=== PATIENT | male | born 1935 | race Caucasian/White ===

== ENCOUNTER → 2016-10-17 09:12 | Day surgery (SDC) | payer MEDICARE ==
[~2016-10-17 09:12] MED LIST: Acetaminophen TAB* 325 MG PO PRN; Buffered Lidocaine 1% SYRIN* 3 ML/SYR SYRINGE INTRADERM ONE; Cyclopentolate 1% OPTH.SOL* 2 ML BTL ONE; Flurbiprofen 0.03% OPTH.SOL* 2.5 ML BTL ONE; Lidocaine 1% MPF* 2 ML VIAL ONE; Lidocaine 2% EPI 1:200000 MPF* 20 ML VIAL ONE; Midazolam* 1 MG/ML 2 ML VIAL (2 MG) ONE; Neomycin/Polymy/Dex OPTH.SUSP* MAXITROL 0.1% 5 ML ONE; Phenylephrine 2.5% OPTH.SOL* 2 ML BTL ONE; Povidone Iodine 5% OPTH* 30 ML BTL ONE; Proparacaine 0.5% OPHTH.SOL* 15 ML BTL ONE; acetaZOLAMIDE TAB* 250 MG ONE; fentaNYL* 50 MCG/ML 2 ML VIAL (100 MCG VIAL) ONE
[2016-10-17 12:04] VITALS: BP 127/72
--- NOTE | 2016-10-17 12:39 | OP ---
DATE OF OPERATION: 10/17/2016 - [facility] DATE OF : 1935. SURGEON: Alfredito Valencia M.D. PREOPERATIVE DIAGNOSIS: Cataract right eye. POSTOPERATIVE DIAGNOSIS: Cataract right eye. OPERATIVE PROCEDURE: Phacoemulsification right eye with IOL. DESCRIPTION OF PROCEDURE: The patient was brought to the operating room after being given 1/2% Alcaine with epinephrine drops in the preoperative area. The eye was prepped and draped in the usual sterile fashion. Sterile drape and eyelid speculum were placed. Again, topical 1/2% Alcaine with epinephrine was given. A paracentesis incision was made at the 9 o'clock position with the No.75 blade. Clear cornea incision 2.2 x 2.2-mm was created at the 12 o'clock position starting at the anterior limbus using the 2.2-mm keratome. The anterior chamber was irrigated with 0.4 mL of 1% non-preservative intracameral lidocaine and filled with DisCoVisc. A capsulorrhexis was completed using the cystotome and the Utrata forceps. Hydrodissection was performed with balanced salt solution. The lens nucleus was removed with the Phacoemulsification handpiece without incident. Cortex was removed with the irrigation-aspiration handpiece. The capsular bag was re-inflated using DisCoVisc and an [id number] implant was inserted with the shooter. The irrigation-aspiration handpiece was used to remove all residual DisCoVisc. The eye was refilled with balanced salt solution and the wound checked and found to be watertight. Topical Maxitrol drops were given. [id number]/[facility] #: [id number] [facility]ENTERLisa
== END | disposition home or self-care (01) ==
LOC: OREAST 09:12
PROVIDERS: ATTEND Specialist
DX: H25.811 Combined forms of age-related cataract, right eye (principal); H04.123 Dry eye syndrome of bilateral lacrimal glands; I48.2 Chronic atrial fibrillation; Z79.01 Long term (current) use of anticoagulants; Z87.891 Personal history of nicotine dependence; Z86.73 Personal history of transient ischemic attack (TIA), and cerebral infarction without residual deficits
CPT/HCPCS: J2250; J3010; V2632

== ENCOUNTER 2017-10-01 09:49 | Inpatient (IN) | payer MEDICARE ==
[2017-10-01] MEDS ORDERED: Amiodarone IV VIAL* 3 ML ONE (09:54)
[2017-10-01] MEDS ORDERED: Amiodarone 360 MG IVPREMIX* 360 MG/200 ML BAG IV ONE ×2 (09:55→10:03)
[2017-10-01] MEDS ORDERED: NS 0.9% 1000 ML* 1,000 ML IV ONE (10:03)
[2017-10-01] MEDS: Amiodarone 150 MG IVPREMIX* 150 MG/100 ML BAG IV ONE ×2 (10:05→10:15)
[2017-10-01] MEDS: Amiodarone 360 MG IVPREMIX* 360 MG/200 ML BAG IV ONE ×2 (10:25→16:01)
[2017-10-01] MEDS ORDERED: Heparin DRIP 25,000 UNITS(*) 25,000 UNITS/500 ML BAG IVPB ONE (10:26)
[2017-10-01] MEDS ORDERED: Heparin VIAL(*) 5000 UNITS/ML VIAL (FIVE THOUSAND) ONE (10:28)
[2017-10-01 10:39] LABS: ABS Basophils 0 10^3/ul (0-0.2); ABS Eosinophils 0.3 10^3/ul (0-0.6); ABS Lymphocytes 1.6 10^3/ul (1.0-4.8); ABS Monocytes 0.6 10^3/ul (0-0.8); ABS Neutrophils 4.3 10^3/ul (1.5-7.7); ABS Nucleated RBC 0 10^3/ul; Eosinophil % 4.5 % (0-6); Hematocrit 46 % (42-52); Hemoglobin 15.2 g/dl (14.0-18.0); Lymphocyte % 24.1 % (25-47); Mean Corpuscular HGB Conc 33 g/dl (31-36); Mean Corpuscular Hemoglobin 31 pg (27-31); Mean Corpuscular Volume 92 fL (80-94); Mean Platelet Volume 8.4 um3 (7.4-10.4); Nucleated Red Blood Cells % 0.1; Platelet Count 222 10^3/ul (150-450); Red Blood Count 4.95 10^6/ul (4.0-5.4); Red Cell Distribution Width 14 % (10.5-15); White Blood Count 6.8 10^3/ul (3.5-10.8)
[2017-10-01 10:47] LABS: INR 1.14 (0.77-1.02)
[2017-10-01] MEDS ORDERED: Famotidine TAB* 20 MG PO SCH (11:00)
[2017-10-01] MEDS ORDERED: Heparin VIAL(*) 5000 UNITS/ML VIAL (FIVE THOUSAND) IV SCH (11:00)
--- NOTE | 2017-10-01 11:00 | RAD ---
HISTORY: STEMI COMPARISONS: November 17, 2011 VIEWS: 1: frontal portable view of the chest at 10:00 AM FINDINGS: LINES AND TUBES: None. CARDIOMEDIASTINAL SILHOUETTE: The cardiac silhouette is mildly enlarged. The cardiomediastinal silhouette is otherwise normal for portable technique. PLEURA: The costophrenic angles are sharp. No pleural abnormalities are noted. LUNG PARENCHYMA: There is hyperinflation. There is prominence of the central pulmonary vasculature. ABDOMEN: The upper abdomen is clear. There is no subphrenic gas. BONES AND SOFT TISSUES: Degenerative changes are noted along the spine. IMPRESSION: 1. MILD CARDIOMEGALY. 2. HYPERINFLATION. 3. PULMONARY VASCULAR CONGESTION.
[2017-10-01] MEDS ORDERED: Heparin VIAL(*) 5000 UNITS/ML VIAL (FIVE THOUSAND) IV ONE (11:12)
[2017-10-01] MEDS ORDERED: Heparin DRIP 25,000 UNITS(*) 25,000 UNITS/500 ML BAG IV SCH (11:15)
[2017-10-01 12:07] LABS: EGFR Non-African American 80.2 (>60)
[2017-10-01] MEDS ORDERED: Morphine INJ* 2 MG/ML 1 ML CARPUJECT IV PRN (12:18)
[2017-10-01] MEDS ORDERED: Morphine INJ* 2 MG/ML 1 ML CARPUJECT ONE ×2 (12:22→14:37)
[2017-10-01] MEDS ORDERED: Morphine INJ* 4 MG/ML 1 ML SYRINGE (NEW SYRINGE VERSION) IV PRN (14:31)
[2017-10-01] MEDS: Morphine INJ* 2 MG/ML 1 ML CARPUJECT IV PRN ×2 (14:40→18:33)
--- NOTE | 2017-10-01 15:16 | CONS ---
CC: Dr. Wellington Abreu; Dr. Pancho Leggett * CARDIOLOGY CONSULT: DATE OF CONSULT: 10/01/17 INDICATION FOR CARDIAC CATHETERIZATION: The patient with guo-ee-eoyqhajm arrest with ventricular fibrillation, with EKG showing mild ST-segment elevations in limited leads of V5 and V6, without significant dramatic other changes. HISTORY OF PRESENT ILLNESS: The patient is a pleasant 81-year-old gentleman whose prior cardiac history includes atrial flutter in the past for which he underwent ablation therapy and has been on Pradaxa therapy since then. He has a history of an arrhythmic-induced left ventricular systolic dysfunction with a cardiac catheterization in 2008 demonstrating an EF reduced in the range of 30% to 35%, with global hypokinesis at that time. He had a 50% narrowing in the left anterior descending artery and a 20% narrowing noted in the proximal right coronary artery. 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 As mentioned earlier, he had ablation therapy for atrial flutter performed in 2008. He has been on Pradaxa 150 mg. Of note, later in the course of the evaluation he admitted that he only takes the Pradaxa once a day and not twice a day. He has been on a baby aspirin once a day as well. He has not noted any sensations of palpitations. On the day of admission, he states that he was in his house and developed an onset of severe lightheaded, near syncopal sensation. He thought he was going to pass out, but he then recovered, but then started experiencing some chest discomfort. He called the paramedics, when they arrived he walked out to greet them and he proceeded to collapse. He was found to be in ventricular fibrillation. They shocked him back to normal sinus rhythm and after approximately 2 minutes of CPR, he responded well and basically awoke quickly. An EKG was performed by the paramedics that suggested the presence of ST- segment elevation in V5 alone. There was no significant ST-segment elevations elsewhere on at least one of the EKGs I saw. When he came into the emergency room, over the time on repeated EKGs, the ST- segment elevation in V5 had normalized. There was minimal ST-segment depression in II, III, and aVF, of an inconsistent nature. In the emergency room, when I saw him, he was complaining about a chest soreness, but it was worse when he took a breath or if I pressed on his chest. At rest, if he did not breathe at all, by the time I got down evaluating him, he had no chest discomfort. PAST MEDICAL HISTORY: Includes a history of CVA in 2011 involving the left superior temporal lobe on MRI. He has a history of reported atrial arrhythmias. Of note, the patient had ablation therapy reportedly for atrial flutter in 2008. He does have a history of atrial fibrillation with an EKG from a stress test in 2013 that showed atrial fibrillation with a controlled rate. He reportedly had a history in the distant past of peptic ulcer disease and gastroesophageal reflux, and kidney stones on one occasion. PAST SURGICAL HISTORY: He has a surgical history of bilateral inguinal hernia surgeries and some fractured bones. MEDICATIONS: According to the patient, the medications that he takes at home includes aspirin one a day, Pradaxa 150 mg once a day. He takes vitamin E and some other medications. He is on no other cardiac medications, specifically he is not on any metoprolol. In the past, at one point, he had been on flecainide , but he has not been on that for quite a while. ALLERGIES: He denies any significant allergies. FAMILY HISTORY: Remarkable for mother, who of heart disease. Father, who had throat cancer. SOCIAL HISTORY: He used to smoke in the very distant past, but has not smoked for over 30 years. REVIEW OF SYSTEMS: The patient denies any recent episodes of any chest or arm discomfort, or profound shortness of breath. He denies any significant episodes of dizziness recently. He has the GI history as mentioned earlier. He has no known history of significant persistent kidney disease. He has had the CVA. PHYSICAL EXAMINATION: When I saw him in the emergency room, reveals a gentleman currently in no acute distress. Blood pressure revealed 150/97, with a pulse of 78, O2 saturation 97% on room air. Neck was supple. There is no increased JVP. Carotid had fair upstroke and volume. I cannot appreciate a definitive bruit or transmitted murmur. Conjunctivae are pink. Sclerae are clear. Lungs reveal no accessory muscle usage. There is fair excursion. There is no active rales, rhonchi, or wheezes. Heart reveals no visible heaves , no palpable heaves or thrills. Normal S1, S2. No significant systolic or diastolic murmur. Abdomen is soft, nontender, without organomegaly. Extremities without edema. Femoral pulses present, without bruit. Neuro: The patient seems alert and oriented. Musculoskeletal: The patient moves all extremities appropriately. Psychological: The patient with normal affect. DIAGNOSTIC STUDIES/LAB DATA: Electrocardiogram most recently was from 10/01/17 , time 0957, showed sinus rhythm, heart rate 77. There was minimal nonspecific ST-T wave changes with minimal depression in II, III, and aVF. There was minimal J- point elevation in V5, with concave upward ST-segment. OVERALL ASSESSMENT: Lavon presents now with an oqo-gz-zzuppohu cardiac arrest. At this point in time we will be getting a 2D echo and look at his overall LV function. He does have some Pradaxa on board, but taking it once a day may not be anywhere near therapeutic amount in him. Consideration for cardiac catheterization within the next 24 hours, or more emergently if needed, will be made. We will review the results of the echocardiogram. We will cycle his cardiac enzymes as well and await laboratory results. [id number]/[facility] #: [id number] [facility]ITALLisa
--- NOTE | 2017-10-01 15:33 | HP ---
ADMISSION HISTORY AND PHYSICAL: DATE OF ADMISSION: 10/01/17 REASON FOR ADMISSION: Rgo-tn-Zqhyloye Cardiac Arrest (Ventricular Fibrillation) . HISTORY OF PRESENT ILLNESS: The patient is an 81-year-old male with a prior history of atrial fibrillation, status post catheter ablation in 2008 with a recurrence and requiring cardioversion in 2013 and has been on Pradaxa (and no antiarrhythmic agent) -this morning had an episode of sudden loss of consciousness. EMS was called and when they arrived, the patient was noted to be in ventricular fibrillation, was successfully cardioverted with return of consciousness - On arrival to the emergency room, electrocardiogram initially showed ST elevation in the inferior and lateral precordial leads, but a repeat cardiogram approximately 30 minutes later showed resolution in the inferior leads. The patient was alert, oriented and in no distress in the ED, and was hemodynamically stable. He was started on an amiodarone infusion and heparin infusion, and admitted to the intensive care unit. There was no chest pain or shortness of breath on admission. Patient was seen in ED by Dr. Hernán Culp ( interventional cardiology). OUTPATIENT MEDICATIONS: 1. Dabigatran 150 mg p.o. daily. 2. Cholecalciferol 5000 units daily. 3. Ascorbic acid 500 mg daily. 4. Aspirin 81 mg daily. 5. Magnesium oxide 400 mg daily. ALLERGIES: There are no known drug allergies. REVIEW OF SYSTEMS: Noncontributory. PHYSICAL EXAMINATION GENERAL: The patient is alert, oriented and breathing comfortably. VITAL SIGNS: Temp 97.1 (temporal), blood pressure 140/88, heart rate 65 and regular, respiratory rate 18 and nonlabored, O2 sat 97% on nasal O2 at 2 L per minute. HEENT: Normal. NECK: Supple. LUNGS: Clear to auscultation. CARDIAC: Exam revealed no murmurs or rubs. ABDOMEN: Soft, nontender. Bowel sounds are present. EXTREMITIES: Warm, not cyanotic and not edematous. DIAGNOSTIC STUDIES/LAB DATA: Admission laboratory data is significant for initial troponin of 0.05, lactic acid of 2.8, BNP of 155. Hemoglobin, white count and platelet count are all normal. Initial INR is 1.14 and PTT on heparin infusion is 71.6. Chest x-ray shows a prominent cardiac silhouette with possible vascular congestion. There are no infiltrates. Electrocardiograms as indicated IMPRESSION: Hyn-ym-jgmnuvqo cardiac arrest (ventricular fibrillation) without any neurologic or hemodynamic sequelae. No evidence of ongoing ischemia or progressive myocardial injury. MANAGEMENT PLAN: The patient will receive an amiodarone and heparin drip pending Dr. Culp's decision to perform cardiac catheterization. Currently, the patient is hemodynamically stable and breathing comfortably. TIME SPENT: Critical care time, 60 minutes. [id number]/[facility] #: [id number] SHAJI
[2017-10-01] MEDS ORDERED: Clopidogrel TAB* 300 MG PO ONE (15:52)
[2017-10-01] MEDS ORDERED: Amiodarone 360 MG IVPREMIX* 360 MG/200 ML BAG IV SCH (16:00)
[2017-10-01] MEDS ORDERED: Ondansetron INJ* 2 MG/ML VIAL IV PRN (16:14)
[2017-10-01] MEDS ORDERED: Magnesium Sulfate 1 GM IV* 1 GM/100 ML BAG IV ONE (22:00)
[2017-10-01] MEDS: NS 0.9% 1000 ML* 1,000 ML IV SCH (23:00)
[2017-10-02] MEDS: Morphine INJ* 2 MG/ML 1 ML CARPUJECT IV PRN (01:12)
[2017-10-02 05:37] LABS: ABS Basophils 0 10^3/ul (0-0.2); ABS Eosinophils 0 10^3/ul (0-0.6); ABS Lymphocytes 1.2 10^3/ul (1.0-4.8); ABS Nucleated RBC 0 10^3/ul; Eosinophil % 0.4 % (0-6); Hematocrit 42 % (42-52); Mean Corpuscular HGB Conc 34 g/dl (31-36); Mean Corpuscular Hemoglobin 31 pg (27-31); Mean Corpuscular Volume 92 fL (80-94); Mean Platelet Volume 8.4 um3 (7.4-10.4); Nucleated Red Blood Cells % 0; Platelet Count 207 10^3/ul (150-450); Red Blood Count 4.54 10^6/ul (4.0-5.4); Red Cell Distribution Width 14 % (10.5-15); White Blood Count 9.2 10^3/ul (3.5-10.8)
[2017-10-02 05:47] LABS: EGFR Non-African American 85.6 (>60)
[2017-10-02] MEDS ORDERED: Aspirin EC TAB* 81 MG TAB.EC PO SCH (06:00)
[2017-10-02] MEDS ORDERED: Clopidogrel TAB* 75 MG PO ONE (06:00)
[2017-10-02 07:02] VITALS: BP 151/96
[2017-10-02] MEDS: NS 0.9% 1000 ML* 1,000 ML IV SCH (07:26)
[2017-10-02] MEDS ORDERED: Midazolam* 1 MG/ML 10 ML VIAL (10 MG) ONE (07:53)
[2017-10-02] MEDS ORDERED: fentaNYL* 50 MCG/ML 5 ML VIAL (250 MCG VIAL) ONE (07:53)
[2017-10-02] MEDS ORDERED: Heparin 2 UNITS/ML IVPREMIX* 3,000 ML IV ONE (07:54)
[2017-10-02] MEDS ORDERED: nitroGLYCERIN DRIP* 25,000 MCG/250 ML BTL ONE (07:54)
[2017-10-02] MEDS ORDERED: Lidocaine 1% INJ* 10 MG/ML 30 ML SDV ONE (07:54)
[2017-10-02] MEDS ORDERED: Iohexol 350 (CONTRAST) 200 ML MDV IV ONE (07:54)
[2017-10-02] MEDS ORDERED: fentaNYL* 50 MCG/ML 2 ML VIAL (100 MCG VIAL) ONE (08:45)
--- NOTE | 2017-10-02 11:55 | TRS ---
CC: Dr. Wellington Abreu; Dr. Pancho Leggett* DATE OF ADMISSION: 10/01/2017. DATE OF TRANSFER: 10/02/2017. FINAL DIAGNOSIS: Out of hospital ventricular fibrillation arrest. SECONDARY DIAGNOSES: 1. Zdr-XN-eyoqceluf myocardial infarction. 2. Severe cardiomyopathy. 3. Coronary artery disease. 4. History of atrial fibrillation. 5. History of prior CVA (2011). 6. Peptic ulcer disease. 7. Gastroesophageal reflux. 8. History of kidney stone. HOSPITAL COURSE: The patient is an 81-year-old gentleman who presented to [facility] on 10/01/2017 after suffering an out of hospital ventricular fibrillation arrest with two minutes of CPR and electrical defibrillation by the paramedics with the moravian of consciousness and a normal sinus rhythm. Please refer to the my consult note for complete details. The patient was noted to have mild ST segment elevation of V5 and mild in V6, which by the time he got to the hospital steadily improved without other changes elsewhere. At that hospital, he was completely pain free and he was admitted to the Intensive Care Unit as there was an initial history he was taking Pradaxa for atrial fibrillation. He was placed on an Amiodarone drip and also Heparin drip. He had gotten aspirin therapy. A second antiplatelet agent was not added at that time. Overnight his cardiac enzymes steadily increased slowly from an initial cardiac enzyme of total CPK of 90 and MB of 4.3 and troponin of 0.05 to a total CPK of 315, an MB of 61, and a troponin of 6.31. His kidney function was stable with a BUN and creatinine on the day of transfer of 23 and 0.8 with a potassium of 4.3. Overnight he was stable. He had absolutely no anginal type of chest discomfort. He had soreness particularly in the right parasternal rib cage from two minutes of CPR. During the hospitalization, he had an echocardiogram performed on 10/01/2017 which revealed an EF of 20 to 25 percent with global severe left ventricular systolic dysfunction. There was mild to moderate mitral regurgitation with an eccentric jet that was mild to moderate tricuspid regurgitation with moderate pulmonary hypertension and trace pulmonic regurgitation. Of note, that was compared with an echocardiogram from 11/23/2013 when he had normal left ventricular systolic function and only mild mitral regurgitation and only trace tricuspid regurgitation. He was brought to the cardiovascular laboratory suite on the morning of 2017. Cardiac catheterization revealed progression and disease in the left anterior descending artery (see below past cardiac history for comparison) with a haziness and a calcified proximal to ostial LAD lesion that on most views did not appear to be significant except for the ARABIC cranial view. The mid LAD, which in the past had a prior 50 percent blockage with calcium was noted to again have similar to that. The right coronary artery had no significant blockages with ostial calcium and a mild ostial narrowing, and the circumflex had a mild mid 30 to 40 percent narrowing noted. His LV function continued to show severe left ventricular systolic dysfunction. The only areas that were pumping reasonably well were the very proximal anterior wall and the proximal and maybe proximal to slightly mid inferior wall. Overall ejection fraction in general was reduced in the 20 to 25 percent range. PAST CARDIAC HISTORY: The patient's cardiac history seemed to date back to 2005 when he had a cardiac catheterization which revealed the 50 percent mid LAD and the 20 percent right coronary artery blockage. In 2008, he had atrial flutter and significant left ventricular systolic dysfunction, and a cardiac catheterization to look at that LV dysfunction revealed that his EF was markedly reduced at 20 to 25 percent, but there was no progression of his coronary artery disease. He apparently underwent atrial flutter ablation back in 2008. He then presented in 2011 with a stroke which they questioned atrial fibrillation and as such they put him on anticoagulation therapy. He had also been on Flecainide in the past to try to control his rhythm disturbances. In 2013, he presented with recurrent atrial fibrillation and the echocardiogram showed his LV function was normal and he had a stress test done as well performed as an exercise stress test to 9 mins standard Howie protocol, heart rate to 123% age predicted. There was no chest pain or significant EKG changes reported and nuclear images were felt to be normal with an ejection fraction of 54 percent. He underwent electrical cardioversion and apparently was placed on beta dianne therapy alone. No further cardiac follow-up had been pursued. MEDICATIONS: His current medications at [facility] at the time of transfer included: 1. Aspirin 81 mg a day. 2. Famotidine 20 mg a day. 3. Heparin drip continuously for anticoagulation. 4. Amiodarone drip at 0.5 mg/hour. PHYSICAL EXAMINATION ON THE DATE OF TRANSFER: General: The patient was stable with no acute chest discomfort. Vital Signs: Blood pressure was 144/98, pulse 59, respirations 16, O2 saturation 96 percent. HEENT: Conjunctival pink. Sclerae clear. Neck: Supple, no increased JVP. Lungs: Revealed no accessory muscle usage. There was no active rales, rhonchi, or wheezes. Heart: Revealed a regular rate and rhythm without significant murmur. Abdomen: Soft, nontender. Extremities: Without edema. Electrocardiogram on the date of transfer on 10/02/2017 revealed sinus rhythm, heart rate 61, [place] to .19, QRS .12, QT .51, axis was -28 degrees, there was T- wave inversions in 1 aVL and V3 through 6 with flat T-wave and aVF and T-wave inversion lead 2. The patient is now to be transferred to [facility] to Dr. Nugent ( Belt Machine Operator) at the Audit [facility], specifically to further analyze the LAD lesion with consideration for fractional flow reserve or interventional ultrasound to determine whether or not the artery's lesion is significant or not. If it is, consideration for stenting will be made and if that is carried out, medical management for LV dysfunction and a life vest will need to be placed before the patient is discharged. If, however, the LAD lesion is not found to be significant, then most likely Electrophysiology will be consulted and an ICD box will need to be placed. One concern I have regarding Electrophysiology's involvement, is whether or not the patient deteriorated potentially from ventricular fibrillation or whether he had rapid atrial fibrillation and ischemic induced ventricular fibrillation from moderate coronary artery disease. With his history of prior atrial fibrillation, consideration may have to be made toward getting him on Amiodarone or another agent orally before he is discharged to make sure he does not have a recurrent episode of rapid atrial fibrillation, which may have been the precipitating factor in all of this. [id number]/[facility] #: [id number] [facility]ENTERLisa
--- NOTE | 2017-10-02 12:12 | CATH ---
CC: Wellington Abreu MD; Pancho Leggett MD* CARDIAC CATHETERIZATION REPORT: DATE OF PROCEDURE: 10/01/17 INDICATION FOR THE CARDIAC CATHETERIZATION: The patient with out of hospital ventricular fibrillation arrest with abnormal cardiac enzymes, history of moderate coronary artery disease, now with severe left ventricular systolic dysfunction. PROCEDURE: Coronary arteriography, left heart catheterization, left ventriculography. The patient was interviewed and examined on the floor of the hospital where the risks and benefits were explained. He understood them and wished to proceed. EQUIPMENT UTILIZED: Right femoral artery sheath, 5-Kittitian Maria Del Rosario sheath. DIAGNOSTIC CATHETERS: FL 4.5 curve left coronary catheter, FR4 curve right 5- Kittitian catheter. Left heart catheterization catheter, 5-Kittitian angled pigtail catheter. MEDICATIONS GIVEN: The patient had already received aspirin therapy, was on a heparin drip and amiodarone drip. The patient received fentanyl therapy and IV nitroglycerin was started and increased to 5 mcg per minute by the end of the case. The total contrast used was 103 cc of Omnipaque dye. The radiation exposure included 10 minutes of fluoro time. The air kerma radiation was 1063 milligray. The DAPA radiation was 6237 microgray per meter squared. RESULTS: HEMODYNAMIC DATA: Left heart catheterization - central aortic pressure recorded at 156/87 with a mean of 115, left ventricular pressure 157 over left ventricular end diastolic pressure of 28 to 30 mmHg. LEFT VENTRICULOGRAPHY: Performed in the CLARK projection revealed severe global left ventricular systolic dysfunction with virtual akinesis of the mid to distal anterior apical region and distal inferior wall. The only area of muscle that appeared to be moving with normal degree is the very proximal anterior wall and the proximal inferior wall. Overall ejection fraction is estimated at 25% at best. There was very mild mitral regurgitation at best. CORONARY ARTERIOGRAPHY: A. Left coronary artery: 1. Left main - the left main was widely patent. 2. Left anterior descending artery - the left anterior descending artery had a proximal area of haziness with calcium seen, which appeared to be in some views as much as 50% to 55%. The GERMAN cranial projection suggests perhaps worse. The mid portion of the left anterior descending artery had calcium with an area of haze noted as well. In its worst view, it appeared to have a narrowing of 55%. The continuation of left anterior descending artery revealed the artery tapering with an area of narrowing in its distal portion of about 65 % to 70% in a very small caliber (noninterventional) area before it bifurcated onto the distal inferior wall. 3. Circumflex artery - a nondominant vessel supplying a high trifurcation marginal branch which bifurcated in its mid portion with a larger superior and smaller caliber inferior branch. There was haze seen in the proximal to mid segment area with a degree of luminal reduction noted to be approximately 40% to 45%. The continuation of the circumflex supplied 2 very thin obtuse marginal branches ending at a low lying bifurcating obtuse marginal branch. Just at the proximal portion of that area was a narrowing that was seen to be approximately 35% to 40%. B. Right coronary artery - a dominant vessel supplying multiple acute marginal branches, the PDA and the posterior left ventricular branch. There was very mild ostial narrowing with calcium of approximately 15% to 20%. The mid portion of the vessel had a very mild 15% blockage. OVERALL ASSESSMENT: Severe global left ventricular systolic dysfunction with elevated left ventricular end diastolic pressure, seemingly out of proportion for the degree of coronary artery disease. The presence of progressive disease in the left anterior descending artery proximal area with calcium with moderate disease in the mid segment, which may be mildly worse. At this point in time, given the severe ischemia and the presence of severe left ventricular systolic dysfunction and the need to pursue further evaluation of the left anterior descending artery and the potential need for a ICD to be placed (which cannot be done currently this week at [facility]), the decision was made to transfer the patient to [facility]. A discussion was made with Dr. Nugent , interventionalist, who will probably perform FFR analysis of the left anterior descending artery and make further decisions on which route to proceed with, either intervention or EP evaluation. Either way, the patient will need aggressive medication for left ventricular systolic function. Consideration may have to be made by Electrophysiology any way with regard to antiarrhythmic therapy as we cannot rule out that the patient did not have rapid atrial fibrillation with ischemia-induced ventricular fibrillation since he had a history of atrial fibrillation in the past and was not on reportedly beta-dianne therapy at home. [id number]/[facility] #: [id number] [facility]
== END 2017-10-02 10:00 | disposition short-term general hospital (02) | DRG 281 ==
LOC: ED 09:49 → ICU 10:10
PROVIDERS: ADMIT Internal Medicine Critical Care Medicine; ATTEND Internal Medicine Cardiovascular Disease
PROC: 4A023N7 Measurement of Cardiac Sampling and Pressure, Left Heart, Percutaneous Approach (ICD-10-PCS; principal; 2017-10-01)
PROC: B211YZZ Fluoroscopy of Multiple Coronary Arteries using Other Contrast (ICD-10-PCS; 2017-10-01)
PROC: B215YZZ Fluoroscopy of Left Heart using Other Contrast (ICD-10-PCS; 2017-10-01)
DX: I46.2 Cardiac arrest due to underlying cardiac condition (principal); I21.4 Non-ST elevation (NSTEMI) myocardial infarction; I42.9 Cardiomyopathy, unspecified; I49.01 Ventricular fibrillation; I25.10 Atherosclerotic heart disease of native coronary artery without angina pectoris; I48.91 Unspecified atrial fibrillation; K25.9 Gastric ulcer, unspecified as acute or chronic, without hemorrhage or perforation; K21.9 Gastro-esophageal reflux disease without esophagitis; Z79.01 Long term (current) use of anticoagulants; Z79.82 Long term (current) use of aspirin; Z79.899 Other long term (current) drug therapy; Z87.891 Personal history of nicotine dependence; Z82.49 Family history of ischemic heart disease and other diseases of the circulatory system; Z80.0 Family history of malignant neoplasm of digestive organs
CPT/HCPCS: 36415; 71045; 76937; 80053; 82550; 82553; 83605; 83721; 83735; 83874; 83880; 84132; 84484; 85025; 85610; 85730; 86850; 86900; 86901; 87641; 93005; 93306; 93458; 99285; A9270-GY; C1887; J0282; J1644; J2250; J2270; J3010; J3475

== ENCOUNTER 2018-02-05 08:08 | Day surgery (SDC) | payer MEDICARE ==
[~2018-02-05 08:08] MED LIST changes: -Acetaminophen TAB* 325 MG PO PRN; +Buffered Lidocaine 0.9% SYRIN* 5 ML/SYR SYRINGE INTRADERM ONE; -Buffered Lidocaine 1% SYRIN* 3 ML/SYR SYRINGE INTRADERM ONE; -Cyclopentolate 1% OPTH.SOL* 2 ML BTL ONE; -Flurbiprofen 0.03% OPTH.SOL* 2.5 ML BTL ONE; -Lidocaine 1% MPF* 2 ML VIAL ONE; -Lidocaine 2% EPI 1:200000 MPF* 20 ML VIAL ONE; -Midazolam* 1 MG/ML 2 ML VIAL (2 MG) ONE; -Neomycin/Polymy/Dex OPTH.SUSP* MAXITROL 0.1% 5 ML ONE; -Phenylephrine 2.5% OPTH.SOL* 2 ML BTL ONE; -Povidone Iodine 5% OPTH* 30 ML BTL ONE; -Proparacaine 0.5% OPHTH.SOL* 15 ML BTL ONE; -acetaZOLAMIDE TAB* 250 MG ONE; -fentaNYL* 50 MCG/ML 2 ML VIAL (100 MCG VIAL) ONE
[2018-02-05] MEDS ORDERED: Midazolam* 1 MG/ML 2 ML VIAL (2 MG) ONE (08:52)
[2018-02-05 09:20] LABS: EGFR Non-African American 70.9 (>60)
[2018-02-05] MEDS ORDERED: Propofol* 10 MG/ML 20 ML BTL IV PUSH ONE (09:33)
[2018-02-05] MEDS ORDERED: Naloxone* 0.4 MG/ML 1 ML VIAL IV PRN (09:52)
[2018-02-05 11:53] VITALS: BP 120/73
--- NOTE | 2018-02-05 12:55 | CARD ---
CC: Dr. Wellington Abreu; Gage Gómez MD, [facility]. ELECTRICAL CARDIOVERSION REPORT: DATE OF PROCEDURE: 02/05/18 INDICATION: The patient with chronic atrial fibrillation, now on amiodarone therapy for attempt at c ardioversion on drug therapy. PROCEDURE: Electrical cardioversion to normal sinus rhythm. DESCRIPTION OF PROCEDURE: The patient was interviewed and examined in the office, where the risks an d benefits were explained. They were again reviewed with him at the day of the procedure. He was br ought into the the operating suite, where he was placed under anesthesia by the anesthesia department . Once fully anesthetized, he underwent initial synchronized cardioversion at 200 joules. Unfortuna tely, he did not cardiovert at that time. A second 200 joule electrical cardioversion shocked into a n atrial regularly paced rhythm. Subsequent, EKG in the recovery room demonstrated the atrial paced ventricularly sensed rhythm at a rate of 60. The patient was stable up and about and eventually disch arged home and will follow up for a repeat EKG next week. He will maintain his Eliquis anticoagulati on as well as his amiodarone and other medications. [id number]/[facility] #: [id number]
== END 2018-02-05 11:58 | disposition home or self-care (01) ==
LOC: OR 08:08
PROVIDERS: ATTEND Internal Medicine Cardiovascular Disease
DX: I48.1 Persistent atrial fibrillation (principal); R06.02 Shortness of breath; Z86.73 Personal history of transient ischemic attack (TIA), and cerebral infarction without residual deficits; I42.9 Cardiomyopathy, unspecified; I34.0 Nonrheumatic mitral (valve) insufficiency; Z95.0 Presence of cardiac pacemaker; I25.10 Atherosclerotic heart disease of native coronary artery without angina pectoris; Z87.891 Personal history of nicotine dependence
CPT/HCPCS: 36415; 80048; 93005; J2250; J2704

== ENCOUNTER 2021-09-05 12:05 | Observation (INO) ==
[~2021-09-05 12:05] MED LIST changes: -Buffered Lidocaine 0.9% SYRIN* 5 ML/SYR SYRINGE INTRADERM ONE; +Buffered Lidocaine 1% SYRIN 1 ml INTRADERM ONE; +Lactated Ringers 1000 ml BAG 1,000 ML IV SCH
[2021-09-05] MEDS ORDERED: Lidocaine 2% PF 5 ML VIAL ONE (12:13)
[2021-09-05] MEDS ORDERED: Propofol 10 MG/ML 20 ML BTL ONE (12:13)
[2021-09-05] MEDS ORDERED: ceFAZolin 2 GM PREMIX 2 GM/50 ML BAG ONE (12:14)
[2021-09-05] MEDS ORDERED: Rocuronium 50 mg VIAL 10 mg/ml 5 ml VIAL (50 mg) ONE (12:16)
[2021-09-05] MEDS ORDERED: Ketamine HCL 50 mg/ml 10 ml VIAL (500 MG) ONE (12:17)
[2021-09-05] MEDS ORDERED: Propofol 0 MG/0 ML BTL ONE (12:25)
[2021-09-05 12:39] LABS: INR 1.23 (0.86-1.15)
[2021-09-05] MEDS ORDERED: Midazolam 2 mg/2 ml VIAL 1 mg/ml 2 ml VIAL (2 mg) ONE (13:24)
[2021-09-05] MEDS ORDERED: fentaNYL 250 mcg/5 ml 50 MCG/ML 5 ml VIAL (250 MCG) ONE (13:30)
[2021-09-05] MEDS ORDERED: ROPIVACAINE 5 MG/ML 30 ML BTL (0.5%) ONE ×2 (13:31→14:26)
[2021-09-05] MEDS ORDERED: Lidocaine 1% MPF 5 ML VIAL ONE (13:31)
[2021-09-05] MEDS ORDERED: DiMENhydriNATE IV 50 mg/ml 1 ml VIAL IV PUSH PRN (13:34)
[2021-09-05] MEDS ORDERED: Ondansetron 4 mg VIAL 2 MG/ML 2 ml VIAL IV PRN ×2 (13:34→16:25)
[2021-09-05] MEDS ORDERED: Acetaminophen IV 1 GM/100ML 100 ML IV PRN (13:34)
[2021-09-05] MEDS ORDERED: HYDROmorphone 1 MG/1 ML SYRINGE IV PRN (13:34)
[2021-09-05] MEDS ORDERED: diPHENhydraMINE IV 50 MG/ML 1 ml VIAL (BENADRYL) IV PRN ×2 (13:34→16:25)
[2021-09-05] MEDS ORDERED: Naloxone 0.4 mg VIAL 0.4 mg/ml 1 ml VIAL IV PRN (13:34)
[2021-09-05] MEDS ORDERED: fentaNYL 100 mcg/2 ml 50 MCG/ML VIAL IV PRN (13:34)
[2021-09-05] MEDS ORDERED: EPHEDrine (Pressors) 50 MG/ML VIAL ONE (15:04)
[2021-09-05] MEDS ORDERED: Sterile Water for Inj 10 ML ONE (15:05)
[2021-09-05] MEDS ORDERED: Phenylephrine 40 mcg/mL 10mL (400mcg) SYRINGE ONE (15:09)
[2021-09-05] MEDS ORDERED: Ondansetron 4 mg VIAL 2 MG/ML 2 ml VIAL ONE (15:26)
[2021-09-05] MEDS ORDERED: Dexamethasone IV 4 MG/ML VIAL 1 ml VIAL ONE (15:26)
[2021-09-05] MEDS ORDERED: HYDROmorphone 0.5 MG/0.5 ML SYRINGE ONE (15:35)
[2021-09-05] MEDS ORDERED: Ondansetron ODT 4 mg TAB 4 MG TAB PO PRN (16:25)
[2021-09-05] MEDS ORDERED: diPHENhydraMINE 25 mg TAB PO PRN (16:25)
[2021-09-05] MEDS ORDERED: Lactulose 30 ml UDC PO PRN (16:25)
[2021-09-05] MEDS ORDERED: Magnesium Hydroxide LIQ 30 ML UDC PO PRN (16:25)
[2021-09-05] MEDS ORDERED: Lactated Ringers 1000 ml BAG 1,000 ML IV SCH (17:00)
[2021-09-05] MEDS ORDERED: ceFAZolin 1 GM ADVAN 1 GM in NS 0.9% 50 ML 50 ML IVPB SCH (17:00)
[2021-09-05] MEDS: Magnesium Hydroxide LIQ 30 ML UDC PO SCH (21:20)
[2021-09-05] MEDS: ceFAZolin 1 GM in Dextrose 1 GM/50 ML BAG IVPB SCH (23:51)
[2021-09-06] MEDS: ceFAZolin 1 GM in Dextrose 1 GM/50 ML BAG IVPB SCH ×2 (05:56→15:35)
[2021-09-06 06:09] LABS: Hematocrit 34 % (42-52); Hemoglobin 11.5 g/dL (14.0-18.0); Mean Platelet Volume 7.8 fL (7.4-10.4); Platelet Count 214 10^3/uL (150-450)
[2021-09-06 06:56] LABS: Calcium 8.8 mg/dL (8.6-10.3); Potassium 4.6 mmol/L (3.5-5.0); eGFR CKD-EPI 50.4 (>60)
[2021-09-06] MEDS: Aspirin EC 81 mg TAB.EC (enteric coated) PO SCH (09:43)
[2021-09-06] MEDS: Cholecalciferol (VIT D3) 1,000 unit TAB PO SCH (09:43)
[2021-09-06] MEDS: Vitamin THERAPEUTIC TAB PO SCH (09:45)
[2021-09-06] MEDS: Magnesium Hydroxide LIQ 30 ML UDC PO SCH ×2 (09:46→20:30)
[2021-09-06] MEDS ORDERED: Lactated Ringers 500 ml BAG 500 ML IV ONE (10:19)
[2021-09-06] MEDS ORDERED: Lactated Ringers 500 ml BAG 500 ML IV SCH (13:18)
[2021-09-07 05:48] LABS: Hematocrit 31 % (42-52); Hemoglobin 10.8 g/dL (14.0-18.0); Mean Platelet Volume 8.2 fL (7.4-10.4); Platelet Count 189 10^3/uL (150-450)
[2021-09-07 06:04] LABS: Potassium 4.8 mmol/L (3.5-5.0)
[2021-09-07] MEDS: Cholecalciferol (VIT D3) 1,000 unit TAB PO SCH (08:42)
[2021-09-07] MEDS: Aspirin EC 81 mg TAB.EC (enteric coated) PO SCH (08:43)
[2021-09-07] MEDS: Magnesium Hydroxide LIQ 30 ML UDC PO SCH (08:43)
[2021-09-07] MEDS: Vitamin THERAPEUTIC TAB PO SCH (08:45)
[2021-09-07 11:26] VITALS: BP 126/83
== END 2021-09-07 14:00 | disposition home or self-care (01) ==
LOC: SSU 12:05 → OR 12:05
PROVIDERS: ADMIT Orthopaedic Surgery Adult Reconstructive Orthopaedic Surgery; ATTEND Orthopaedic Surgery Adult Reconstructive Orthopaedic Surgery

== ENCOUNTER 2021-10-27 18:38 | Inpatient (IN) ==
[2021-10-27 19:29] LABS: INR 1.29 (0.86-1.15)
[2021-10-27 19:45] LABS: High Sens Troponin Baseline 28 pg/mL (<20)
[2021-10-27 19:56] LABS: ALT 19 U/L (7-52); Albumin 3.8 g/dL (3.2-5.2); Alkaline Phosphatase 81 U/L (35-149); Blood Urea Nitrogen 28 mg/dL (6-24); CO2 Carbon Dioxide 23 mmol/L (22-32); Calcium 9.6 mg/dL (8.6-10.3); Chloride 105 mmol/L (101-111); Glucose 98 mg/dL (70-100); Sodium 137 mmol/L (135-145); eGFR CKD-EPI 70.4 (>60)
[2021-10-27 20:09] LABS: ABS Eosinophils 0.3 10^3/ul (0-0.6); ABS Lymphocytes 0.9 10^3/ul (1.0-4.8); ABS Monocytes 0.7 10^3/ul (0-0.8); ABS Neutrophils 4.7 10^3/ul (1.5-7.7); Eosinophil % 3.8 %; Hematocrit 32 % (42-52); Hemoglobin 10.7 g/dL (14.0-18.0); Lymphocyte % 14.1 %; Mean Corpuscular HGB Conc 34 g/dL (31-36); Mean Corpuscular Hemoglobin 30 pg (27-31); Mean Corpuscular Volume 89 fL (80-94); Mean Platelet Volume 7.3 fL (7.4-10.4); Platelet Count 303 10^3/uL (150-450); Red Blood Count 3.53 10^6 /uL (4.18-5.48); Red Cell Distribution Width 14 % (10-15); White Blood Count 6.6 10^3/uL (3.5-10.8)
[2021-10-27 20:32] LABS: Albumin/Globulin Ratio 1.2 (1-3); Globulin 3.1 g/dL (2-4); Total Protein 6.9 g/dL (6.4-8.9)
[2021-10-27 20:33] LABS: High Sensitivity Troponin 1 Hr 35 pg/mL (<20)
[2021-10-27 20:33] LABS: Anion Gap 9 mmol/L (2-11)
[2021-10-27] MEDS: Amiodarone 360 MG IVPREMIX 360 MG/200 ML BAG IV SCH (21:36)
[2021-10-27] MEDS ORDERED: Ondansetron 4 mg VIAL 2 MG/ML 2 ml VIAL IV PRN (22:26)
[2021-10-28 00:10] LABS: Magnesium 1.6 mg/dL (1.9-2.7); Potassium 4.2 mmol/L (3.5-5.0)
[2021-10-28] MEDS ORDERED: Magnesium Sulf 4 GM/100 ML IV 4,000 MG/100 ML BAG IVPB ONE (00:28)
[2021-10-28] MEDS ORDERED: Amiodarone 360 MG IVPREMIX 360 MG/200 ML BAG IV SCH (04:10)
[2021-10-28] MEDS: Amiodarone 360 MG IVPREMIX 360 MG/200 ML BAG IV SCH ×2 (04:14→10:07)
[2021-10-28 05:33] LABS: ABS Eosinophils 0.3 10^3/ul (0-0.6); ABS Lymphocytes 1.4 10^3/ul (1.0-4.8); ABS Monocytes 0.7 10^3/ul (0-0.8); ABS Neutrophils 3.3 10^3/ul (1.5-7.7); Eosinophil % 4.8 %; Hematocrit 32 % (42-52); Hemoglobin 10.5 g/dL (14.0-18.0); Lymphocyte % 23.9 %; Mean Corpuscular HGB Conc 33 g/dL (31-36); Mean Corpuscular Hemoglobin 29 pg (27-31); Mean Corpuscular Volume 89 fL (80-94); Mean Platelet Volume 7.4 fL (7.4-10.4); Platelet Count 297 10^3/uL (150-450); Red Blood Count 3.56 10^6 /uL (4.18-5.48); Red Cell Distribution Width 14 % (10-15); White Blood Count 5.7 10^3/uL (3.5-10.8)
[2021-10-28 06:20] LABS: Magnesium 2.7 mg/dL (1.9-2.7); Potassium 4.2 mmol/L (3.5-5.0); eGFR CKD-EPI 85.2 (>60)
[2021-10-28] MEDS: Cholecalciferol (VIT D3) 1,000 unit TAB PO SCH (08:16)
[2021-10-28] MEDS: Multivitamins/Minerals TAB PO SCH (08:16)
[2021-10-28] MEDS: Aspirin EC 81 mg TAB.EC (enteric coated) PO SCH (08:16)
[2021-10-28] MEDS: COENZYME Q10 400 MG PO SCH (08:17)
[2021-10-28] MEDS: NON FORMULARY MED (Cyanocobalamin (Vitamin B-12) [Vitamin B-12] 5,000 mcg Tablet, Sublingu SL SCH (08:17)
[2021-10-28] MEDS: OMEGA-3 FATTY ACID 1000 mg(NF) PO SCH (08:18)
[2021-10-29] MEDS: Cholecalciferol (VIT D3) 1,000 unit TAB PO SCH (10:07)
[2021-10-29] MEDS: Aspirin EC 81 mg TAB.EC (enteric coated) PO SCH (10:07)
[2021-10-29] MEDS: Multivitamins/Minerals TAB PO SCH (10:08)
[2021-10-29] MEDS: COENZYME Q10 400 MG PO SCH (10:15)
[2021-10-29] MEDS: OMEGA-3 FATTY ACID 1000 mg(NF) PO SCH (10:15)
[2021-10-29] MEDS: NON FORMULARY MED (Cyanocobalamin (Vitamin B-12) [Vitamin B-12] 5,000 mcg Tablet, Sublingu SL SCH (10:15)
[2021-10-29 11:43] VITALS: BP 104/66
== END 2021-10-29 13:45 | disposition home or self-care (01) | DRG 310 ==
LOC: ED 18:38 → EDHOLD 22:26 → SUATTDRO 22:26 → ICU 10-28 00:16 → MEDTELE 10-28 17:49
PROVIDERS: ADMIT Internal Medicine; ATTEND Internal Medicine